=== PATIENT | male | born 1960 | race American Indian/Alaskan Native ===

== ENCOUNTER 2017-03-13 05:26 | Emergency (ER) | payer SELFPAY ==
[2017-03-13 05:40] VITALS: BP 148/100
--- NOTE | 2017-03-13 06:19 | XRay Report ---
FINAL REPORT EXAM: XR FOOT 2V LT HISTORY: S/P fall swelling to L foot TECHNIQUE: Left foot, two views PRIORS: None. FINDINGS: There is likely a soft tissue injury involving the great toe. Correlate clinically. I cannot confirm a fracture. 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 Specifically, there are some erosive changes involving the middle phalanx along the medial margin of the joint. IMPRESSION: No acute fracture seen. Possible soft tissue injury involving great toe. Correlate clinically. Erosive/arthritic changes involving middle phalanx medially at 1st IP joint.
--- NOTE | 2017-03-13 08:52 | Emergency Department Report ---
ED Lower Extremity HPI - General Chief Complaint: Extremity Injury, Lower Stated Complaint: LT ANKLE PAIN Time Seen by Provider: 03/13/17 08:36 Source: patient, EMS Mode of arrival: Stretcher Limitations: No Limitations, Physical Limitation - History of Present Illness MD Complaint: foot injury Onset/Timin -: days(s) Injury: Foot: Left, Toes: Left Type of Injury: inversion Place: home Severity: severe Severity scale (0 -10): 10 Improves With: nothing Worsens With: movement - Related Data Previous Rx's Medication Instructions Recorded Last Taken Type Ibuprofen [Motrin] 800 mg PO Q8H #30 tablet 03/17/15 Unknown Rx oxyCODONE /ACETAMINOPHEN [Percocet 1 tab PO Q6HR PRN #15 tablet 03/17/15 Unknown Rx 5/325] Acetaminophen/Codeine [Tylenol 1 tab PO Q6H PRN #12 tab 03/13/17 Unknown Rx /Codeine # 3 tab] Allergies Allergy/AdvReac Type Severity Reaction Status Date / Time No Known Allergies Allergy Unverified 03/16/15 20:10 ED Review of Systems ROS: Stated complaint: LT ANKLE PAIN Other details as noted in HPI Constitutional: denies: chills, fever Eyes: denies: eye pain, eye discharge, vision change ENT: denies: ear pain, throat pain Respiratory: denies: cough, shortness of breath, wheezing Cardiovascular: denies: chest pain, palpitations Endocrine: no symptoms reported Gastrointestinal: denies: abdominal pain, nausea, diarrhea Genitourinary: denies: urgency, dysuria Musculoskeletal: denies: back pain, joint swelling, arthralgia Skin: denies: rash, lesions Neurological: denies: headache, weakness, paresthesias Psychiatric: denies: anxiety, depression Hematological/Lymphatic: denies: easy bleeding, easy bruising ED Past Medical Hx - Past Medical History Previous Medical History?: No - Surgical History Past Surgical History?: Yes Additional Surgical History: ulcers - Social History Smoking Status: Current Every Day Smoker Substance Use Type: Alcohol - Medications Home Medications: Home Medications Medication Instructions Recorded Confirmed Last Taken Type Ibuprofen [Motrin] 800 mg PO Q8H #30 tablet 03/17/15 Unknown Rx oxyCODONE /ACETAMINOPHEN [Percocet 1 tab PO Q6HR PRN #15 tablet 03/17/15 Unknown Rx 5/325] Acetaminophen/Codeine [Tylenol 1 tab PO Q6H PRN #12 tab 03/13/17 Unknown Rx /Codeine # 3 tab] ED Physical Exam - General Limitations: No Limitations, Physical Limitation - Head Head exam: Present: atraumatic, normocephalic - Eye Eye exam: Present: normal appearance - ENT ENT exam: Present: mucous membranes moist - Neck Neck exam: Present: normal inspection - Respiratory Respiratory exam: Present: normal lung sounds bilaterally. Absent: respiratory distress - Expanded Lower Extremity Exam Left Ankle exam: Present: tenderness, swelling. Absent: full ROM Foot/Toe exam: Present: normal inspection, full ROM. Absent: dislocation, erythema Neuro vascular tendon exam: Present: no vascular compromise. Absent: pulse deficit, abnormal cap refill ED Course Vital Signs 03/13/17 05:32 Temperature 99 F Pulse Rate 100 H Respiratory 20 Rate Blood Pressure 148/100 O2 Sat by Pulse 96 Oximetry ED Lower Extremity MDM - Medical Decision Making Patient's been evaluated by this provider fast track. His head with patient that he needs to wear a postop boot as well as her ankle stirrup and keep her referral to orthopedics. Patient take Tylenol 3 for pain management. Patient verbalized understanding. Critical care attestation.: If time is entered above; I have spent that time in minutes in the direct care of this critically ill patient, excluding procedure time. ED Disposition Clinical Impression: Injury of ankle, left Qualifiers: Encounter type: initial encounter Qualified Code(s): S99.912A - Unspecified injury of left ankle, initial encounter Great toe pain Qualifiers: Laterality: left Qualified Code(s): M79.675 - Pain in left toe(s) Disposition: DISCHARGED TO HOME OR SELFCARE Is pt being admited?: No Does the pt Need Aspirin: No Condition: Stable Additional Instructions: Please take pain medication as prescribed. Follow-up with orthopedic provider. Please use her crutches and wear your ankle splint. As well as she used to postop surgical boot. Prescriptions: Acetaminophen/Codeine [Tylenol /Codeine # 3 tab] 1 tab PO Q6H PRN #12 tab PRN Reason: Pain Referrals: PRIMARY CAREMD [Primary Care Provider] - 3-5 Days LAINEY ROCKWELL MD [Staff Physician] - 3-5 Days Forms: Work/School Release Form(ED)
[2017-03-13] MEDS ORDERED: NORCO 5/325 PO ONE (08:53)
== END 2017-03-13 09:46 | disposition home or self-care (01) ==
LOC: ED 05:26
DX: S99.912A Unspecified injury of left ankle, initial encounter (principal); M79.675 Pain in left toe(s); F17.200 Nicotine dependence, unspecified, uncomplicated